=== PATIENT | male | born 1975 | race Caucasian/White ===

== ENCOUNTER 2020-03-29 09:01 | Emergency (ER) | payer BC ==
[~2020-03-29] VITALS: Ht 180.3 cm; Wt 74.8 kg
[2020-03-29 09:05] VITALS: BP 114/74
== END 2020-03-29 09:55 | disposition home or self-care (01) ==
LOC: ER 09:01
DX: S01.21XA Laceration without foreign body of nose, initial encounter (principal); Z88.2 Allergy status to sulfonamides; Z87.891 Personal history of nicotine dependence; W10.8XXA Fall (on) (from) other stairs and steps, initial encounter; Y93.89 Activity, other specified; Y92.89 Other specified places as the place of occurrence of the external cause; Y99.8 Other external cause status